=== PATIENT | male | born 1950 | race Caucasian/White ===

== ENCOUNTER 2016-09-03 09:15 | Day surgery (SDC) | payer MEDICARE, OTHER ==
[~2016-09-03 09:15] MED LIST: LACTATED RINGERS 1,000 ML IV SCH
[2016-09-03] MEDS ORDERED: IV START KIT ONE (09:31)
[2016-09-03] MEDS ORDERED: LACTATED RINGERS 1,000 ML ONE (09:31)
[2016-09-03] MEDS ORDERED: PROPOFOL 20 ML IV ONE (09:56)
[2016-09-03] MEDS ORDERED: LIDOCAINE Viscous 2% 15 ML UDCUP ONE (09:58)
[2016-09-03 15:45] LABS: HELICOBACTER PYLORII DETECTION NEGATIVE (NEGATIVE)
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
== END 2016-09-03 10:55 | disposition home or self-care (01) ==
LOC: SDC 09:15
PROVIDERS: ATTEND Internal Medicine Gastroenterology
PROC: 0DB98ZX Excision of Duodenum, Via Natural or Artificial Opening Endoscopic, Diagnostic (ICD-10-PCS; principal; 2016-09-03)
PROC: 0DB68ZX Excision of Stomach, Via Natural or Artificial Opening Endoscopic, Diagnostic (ICD-10-PCS; 2016-09-03)
DX: K29.70 Gastritis, unspecified, without bleeding (principal); K29.80 Duodenitis without bleeding; E66.9 Obesity, unspecified; Z68.34 Body mass index [BMI] 34.0-34.9, adult; G47.30 Sleep apnea, unspecified; I25.10 Atherosclerotic heart disease of native coronary artery without angina pectoris; E78.5 Hyperlipidemia, unspecified; I10 Essential (primary) hypertension; Z95.818 Presence of other cardiac implants and grafts; Z79.82 Long term (current) use of aspirin
CPT/HCPCS: 87081; 43239; A9270; J7120